=== PATIENT | male | born 1950 | race Caucasian/White ===

== ENCOUNTER 2023-12-02 11:33 | Emergency (ER) | payer MEDICARE, SELFPAY ==
[2023-12-02 11:33] VITALS: BP 154/93; PULSE 80; RESP 15; TEMP 36.3; O2SAT 100; BMI 19.5
[2023-12-02 11:41] VITALS: O2SAT 100
--- NOTE | 2023-12-02 11:48 | CT_ITS ---
STUDY: CT BRAIN WITHOUT CONTRAST REASON FOR EXAM: Male, 73 years old. Head injury, +LOC RADIATION DOSAGE (If Supplied By Facility): CTDIvol = ( 44.99 ) mGy, DLP = ( 796.11 ) mGycm TECHNIQUE: Transaxial CT imaging of the brain was performed without administration of intravenous contrast material. Individualized dose optimization techniques were used for this CT. COMPARISON: No relevant priors. FINDINGS: Normal soft tissue structures. Normal calvarium. There is mild cerebral atrophy with widening of the extra-axial spaces and ventricular dilatation. Normal white matter tracts of the cerebral hemispheres. There are small punctate calcifications of the basal ganglia which are seen in the aging brain as a normal variant. Normal brainstem. Normal cerebellum. There is no intracranial hemorrhage. There are no findings of an acute ischemic infarction. Atherosclerotic calcification of the cavernous portions of the internal carotid arteries bilaterally. Normal visualized paranasal sinuses. CT/Brain/Head without Contrast IMPRESSION: Chronic involutional changes of the brain. Electronically Signed: Abel Arreola MD at 12:33 EDT ,
--- NOTE | 2023-12-02 11:48 | CT_ITS ---
STUDY: CT CERVICAL SPINE WITHOUT CONTRAST REASON FOR EXAM: Male, 73 years old. Injury, pain RADIATION DOSAGE (If Supplied By Facility): CTDIvol = ( 14.24 ) mGy, DLP = ( 331.59 ) mGycm TECHNIQUE: High resolution transaxial imaging was performed without contrast material. Sagittal and coronal images were reconstructed. Individualized dose optimization techniques were used for this CT. COMPARISON: None FINDINGS: Normal craniovertebral junction. There are degenerative changes of the anterior atlantoaxial articulation. Normal odontoid process. There is straightening of the normal cervical lordosis. Normal vertebral bodies and posterior osseous elements. C2-3: Facet joint osteoarthritis and hypertrophy on the left side. Mild degree of left neural foraminal stenosis. C3-4: Facet joint osteoarthritis and hypertrophy. Worse on the left side. Uncovertebral arthrosis. Moderate degree of left neural foraminal stenosis. C4-5: Mild degree of disc space narrowing. Facet joint osteoarthritis and hypertrophy on the left side. Moderate degree of left neural foraminal stenosis. Posterior spondylosis on the left side with no significant stenosis. C5-6: Marked in degree of disc space narrowing and spondylosis. Uncovertebral arthrosis. Bilateral neural foraminal stenosis worse on the left side. C6-7: Normal endplates. Normal disc height and morphology. Normal central canal and intervertebral neuroforamina. C7-T1: Normal endplates. Normal disc height and morphology. Normal central canal and intervertebral neuroforamina. Normal visualized soft tissue structures. CT/Spine Cervical without Contras IMPRESSION: Multilevel degenerative changes, as described above. Electronically Signed: Aebl Arreola MD at 12:36 EDT ,
--- NOTE | 2023-12-02 11:50 | CT_ITS ---
STUDY: CT CHEST WITHOUT CONTRAST REASON FOR EXAM: Male, 73 years old. R rib pain, injury RADIATION DOSAGE (If Supplied By Facility): CTDIvol = ( 10.77 ) mGy, DLP = ( 392.97 ) mGycm TECHNIQUE: Transaxial imaging was performed without the administration of intravenous contrast material. Multiplanar coronal and sagittal images were reformatted. Individualized dose optimization techniques were used for this CT. COMPARISON: No relevant priors. FINDINGS: CHEST There is a 5.8 mm nodule in the posterior aspect of the left lung apex. Minimal increased markings at the lung bases suggestive scarring. There is no demonstrated pleural abnormality. There are calcifications of the coronary arteries. There are small lymph nodes within the mediastinum, which are normal in size and morphology most compatible with reactive lymph hyperplasia. Normal hilar regions. Normal unenhanced pulmonary arteries. There is atherosclerotic calcification of the aortic arch. There are multi-level degenerative changes of the thoracic spine. There is no demonstrated abnormality of the visualized upper abdomen. CT/Chest without Contrast IMPRESSION: 5.8 mm noncalcified nodule in the posterior aspect of the left lung apex. Correlation with a PET scan is recommended. Mild linear scarring at the lung bases. Electronically Signed: Abel Arreola MD at 12:32 EDT ,
--- NOTE | 2023-12-02 11:51 | RAD_ITS ---
STUDY: X-RAY - LEFT TIBIA AND FIBULA REASON FOR EXAM: Male, 73 years old. Laceration TECHNIQUE: 4 view(s) of the tibia and fibula were obtained. COMPARISON: None. FINDINGS: Normal visualized tibia. Normal visualized fibula. Soft tissue laceration overlying the medial aspect of the left tibia. No radiopaque foreign body is seen. RAD/Tibia & Fibula 2 Views IMPRESSION: Soft tissue laceration overlying the medial aspect of the left tibia. No radiopaque foreign body is seen. Electronically Signed: Abel Arreola MD at 12:36 EDT ,
--- NOTE | 2023-12-02 11:54 | EDS_ITS ---
HPI <MERLY Trimble - Last Filed: 12/02/23 14:21> History of Present Illness Chief Complaint: Trauma Narrative Narrative: Patient presenting today due to a injury that occurred this afternoon. He was standing on a ladder and the ladder fell causing him to fall 8 feet onto the ground, he did hit his head and there was a loss of consciousness for about 20 seconds according to his . He has a laceration to his chin and left carlson. He reports pain to his right lateral rib cage. He denies any pain to his neck, back, pelvis, or upper or lower extremities. He is able to ambulate without difficulty/pain. Tetanus is up-to-date. He is not on any blood thinners. PFS <MERLY Trimble Last Filed: 12/02/23 14:21> [facility] Medical History High cholesterol Cardiomyopathy Allergy/AdvReac Type Severity Reaction Status Date / Time aspirin Allergy Anaphylaxis Verified 12/02/23 11:34 Social History Smoking Status: Current every day smoker tobacco type: cigarettes ROS <MERLY Trimble Last Filed: 12/02/23 14:21> ROS ED Constitutional Constitutional ED: Denies chills or fever(s) Eyes Eyes: Denies blurry vision Cardiovascular Cardiovascular: Denies chest pain Respiratory/Chest Respiratory/Chest: Reports other Details: R rib pain ; Denies cough or dyspnea Gastrointestinal Gastrointestinal: Denies abdominal pain, nausea or vomiting Musculoskeletal Musculoskeletal: Denies arthralgias, back pain, myalgias or neck pain Integumentary Reports laceration Neurologic Neurologic: Denies paresthesias EXAM <MERLY Trimble - Last Filed: 12/02/23 14:21> Physical Exam Const Vital Signs: 12/02/23 11:33 12/02/23 11:41 12/02/23 13:06 Temperature 97.3 F L Temperature Source Temporal Pulse Rate 80 76 Respiratory Rate 15 22 H Respiratory Effort Normal Non-Labored Blood Pressure 154/93 H 140/84 H Blood Pressure Mean 113 102 Pulse Ox 100 100 99 Oxygen Delivery Method Room Air Room Air Room Air 12/02/23 13:55 12/02/23 14:00 Temperature 98 F Temperature Source Pulse Rate 66 Respiratory Rate 20 H Respiratory Effort Blood Pressure 133/79 H 143/87 H Blood Pressure Mean 97 105 Pulse Ox 99 Oxygen Delivery Method Positive well nourished, well developed and no apparent distress General Appearance ED: well developed HEENT Reports normocephalic and head/scalp atraumatic HEENT Narrative: 0.5 cm full-thickness laceration to the inside of the lower lip 3.5 centimeter full-thickness laceration to the chin. Mouth ED: Yes moist mucous membranes normal Eyes PERRL and EOMs intact bilaterally Neck full ROM and supple Chest Wall inspection of chest normal Resp normal respiratory effort and clear to auscultation bilaterally Cardio regular rate and regular rhythm GI soft to palpation, non-tender, non-distended and no masses Back/Spine normal ROM and normal to inspection Back/Spine Narrative: No midline thoracic, lumbar, or sacral tenderness Extremity full ROM Extremity Narrative: 8 cm full-thickness laceration to the left carlson. No active bleeding. Full range of motion to the bilateral hips, no tenderness to the bilateral hips. Neuro oriented x3, CN's II-XII intact bilaterally, moves all extremities, no focal motor deficits and no sensory deficits noted Sensorium / Orientation: awake and alert Psych mental status grossly normal and thought process normal <Dr. Anthony Orellana DO - Last Filed: 12/03/23 07:22> Physical Exam Const Vital Signs: 12/02/23 11:33 12/02/23 11:41 12/02/23 13:06 Temperature 97.3 F L Temperature Source Temporal Pulse Rate 80 76 Respiratory Rate 15 22 H Respiratory Effort Normal Non-Labored Blood Pressure 154/93 H 140/84 H Blood Pressure Mean 113 102 Pulse Ox 100 100 99 Oxygen Delivery Method Room Air Room Air Room Air 12/02/23 13:55 12/02/23 14:00 Temperature 98 F Temperature Source Pulse Rate 66 Respiratory Rate 20 H Respiratory Effort Blood Pressure 133/79 H 143/87 H Blood Pressure Mean 97 105 Pulse Ox 99 Oxygen Delivery Method PROC <MERLY Trimble - Last Filed: 12/02/23 14:21> Procedures Lacerations Laceration: Length: 3.15 in Depth: Fascia Shape: Linear Prep: Chlorhexadine Laceration repair: Irrigated, Lidocaine with epi, Skin sutures and Wound explored Number of Sutures/Cameron: 8 Suture Information: Ethilon, Horizontal, Mattress and 4-0 Comment: Irrigated with 1000 mL sterile saline Laceration chin: Length: 1.38 in Depth: Sub Q Shape: Linear Prep: Chlorhexadine Laceration repair: Irrigated, Lidocaine with epi, Skin sutures and Wound explored Irrigated (ml): 500 Number of Sutures/Twila: 7 Suture Information: Ethilon, Simple and 5-0 MDM <MERLY Trimble - Last Filed: 12/02/23 14:21> [facility] Narrative Medical decision making narrative: Patient presenting today due to a fall off a ladder that occurred this afternoon. He did hit his head, he has a laceration to his inner lower lip, chin, and left carlson. He has pain to his right lateral rib cage. CT of the head, neck, and chest obtained to rule out intracranial bleed, cervical fracture, and rib fracture. CT scans are negative for acute findings. There was a 5.8 mm nodule in the left lung, I did make patient aware of this finding and recommended that he follow-up with his PCP for further evaluation. X-ray of the tibia/fibula obtained due to the laceration and is negative for foreign body or fracture. Lacerations were copiously irrigated with normal saline and cleaned with chlorhexidine. They were repaired with sutures, patient tolerated procedure well. Wounds were then bandaged with bacitracin ointment. Patient given this incentive spirometer with instructions on use. I did offer analgesia, he declined. He reports that he will take Tylenol at home as needed. He does have a follow-up appointment with his PCP on . He will be discharged home in stable condition, wound care instructions were discussed. Radiography X-Ray: Read by ED Physician Diagnostic Testing: Clinical Impression(s) from Imaging Studies Brain CT 12/02/23 11:48 IMPRESSION: Chronic involutional changes of the brain. Electronically Signed: Abel Arreola MD at 12:33 EDT , Cervical Spine CT 12/02/23 11:48 IMPRESSION: Multilevel degenerative changes, as described above. Electronically Signed: Abel Arreola MD at 12:36 EDT , Chest CT 12/02/23 11:50 IMPRESSION: 5.8 mm noncalcified nodule in the posterior aspect of the left lung apex. Correlation with a PET scan is recommended. Mild linear scarring at the lung bases. Electronically Signed: Abel Arreola MD at 12:32 EDT , Tibia/Fibula X-Ray 12/02/23 11:51 IMPRESSION: Soft tissue laceration overlying the medial aspect of the left tibia. No radiopaque foreign body is seen. Electronically Signed: Abel Arreola MD at 12:36 EDT , <Dr. Anthony Orellana, DO - Last Filed: 12/03/23 07:22> [facility] Narrative Medical decision making narrative: Patient presenting today due to a fall off a ladder that occurred this afternoon. He did hit his head, he has a laceration to his inner lower lip, chin, and left carlson. He has pain to his right lateral rib cage. CT of the head, neck, and chest obtained to rule out intracranial bleed, cervical fracture, and rib fracture. CT scans are negative for acute findings. There was a 5.8 mm nodule in the left lung, I did make patient aware of this finding and recommended that he follow-up with his PCP for further evaluation. X-ray of the tibia/fibula obtained due to the laceration and is negative for foreign body or fracture. Lacerations were copiously irrigated with normal saline and cleaned with chlorhexidine. They were repaired with sutures, patient tolerated procedure well. Wounds were then bandaged with bacitracin ointment. Patient given this incentive spirometer with instructions on use. I did offer analgesia, he declined. He reports that he will take Tylenol at home as needed. He does have a follow-up appointment with his PCP on . He will be discharged home in stable condition, wound care instructions were discussed. ED attending note: I evaluated the patient in conjunction with the [facility]. I agree with his/her statements and above findings. I have personally performed a face to face assessment of the patient and have reviewed the [facility] Note. I performed a substantive portion of the visit including all aspects of the following. I personally saw the patient performed chart review, physical exam, reviewed labs, imaging (if obtained), and formulated a treatment and management plan. This note was generated with [employer] dictation software. It may contain incorrect words, spelling, and punctuation that were not noted in review of the chart prior to signing. Radiography Diagnostic Testing: Clinical Impression(s) from Imaging Studies Brain CT 12/02/23 11:48 IMPRESSION: Chronic involutional changes of the brain. Electronically Signed: Abel Arreola MD at 12:33 EDT , Cervical Spine CT 12/02/23 11:48 IMPRESSION: Multilevel degenerative changes, as described above. Electronically Signed: Abel Arreola MD at 12:36 EDT , Chest CT 12/02/23 11:50 IMPRESSION: 5.8 mm noncalcified nodule in the posterior aspect of the left lung apex. Correlation with a PET scan is recommended. Mild linear scarring at the lung bases. Electronically Signed: Abel Arreola MD at 12:32 EDT , Tibia/Fibula X-Ray 12/02/23 11:51 IMPRESSION: Soft tissue laceration overlying the medial aspect of the left tibia. No radiopaque foreign body is seen. Electronically Signed: Abel Arreola MD at 12:36 EDT , Discharge Plan Triage Chief Complaint: Trauma ED Midlevel Provider: Gracie Andrea ED Provider: Anthony Orellana Dx/Rx/DC Orders Clinical Impression: Fall, Head injury, Loss of consciousness, Laceration of face, Laceration of left leg, Contusion of rib on right side Instructions: ED Head Injury (Adult), ED Laceration, All Closures, ED Bruise, Rib Primary Care Provider: Christie Rosenbaum Referrals: Christie Rosenbaum, [Primary Care Provider] - 10 Day for suture removal Activity Restrictions/Additional Instructions: Have facial sutures removed in 5 days, have leg sutures removed in 10 days. Return for any signs of infection. Use the incentive spirometer 10 times per hour while awake until your pain subsides. Print Language: Indian Disposition Disposition: Home, Self Care Discharge Date/Time: 12/02/23 14:11
[2023-12-02 13:06] VITALS: BP 140/84; PULSE 76; RESP 22; O2SAT 99
[2023-12-02] MEDS: Lidocaine 1% /Epi 1:100 (20ml) 20 ML Vial 10 ML INFILT (13:16)
[2023-12-02 13:55] VITALS: BP 133/79; PULSE 66; RESP 20; TEMP 36.6; O2SAT 99
[2023-12-02 14:00] VITALS: BP 143/87
== END 2023-12-02 14:11 | disposition home or self-care (01) ==
PROVIDERS: Emergency Provider Emergency Medicine; PCP Internal Medicine; Visit Provider Emergency Medicine
DX: S01.81XA Laceration without foreign body of other part of head, initial encounter (principal); S06.9X9A Unspecified intracranial injury with loss of consciousness of unspecified duration, initial encounter; S20.211A Contusion of right front wall of thorax, initial encounter; S81.812A Laceration without foreign body, left lower leg, initial encounter; F17.210 Nicotine dependence, cigarettes, uncomplicated; W11.XXXA Fall on and from ladder, initial encounter; E78.00 Pure hypercholesterolemia, unspecified
CPT/HCPCS: 12013; 12004; 70450; 71250; 72125; 73590; 99283; J7030; A4216

== ENCOUNTER → 2023-12-17 | Outpatient (CLI) | payer MEDICARE, SELFPAY ==
--- NOTE | 2023-12-17 11:00 | PET_ITS ---
EXAMINATION: FDG PET/CT ? INDICATIONS: 73-year-old male with a history of pulmonary nodularity. ? COMPARISON EXAMINATION: CT of the chest report dated 12/02/2023. ? INDEX LESION SIZE SUV INTERPRETATION Midsternum to the right of midline ? 2.2 max Quantitative criteria for viable neoplasm are not fulfilled ? TECHNIQUE: Following the intravenous administration of 11.59 mCi of F-18 deoxyglucose via the right antecubital fossa, multiplanar image acquisitions of the head, neck, chest, abdomen and pelvis to the level of the midthigh, obtained at one-hour post radiopharmaceutical administration contemporaneously interpreted with the current CT of the chest, abdomen and pelvis dated 12/17/[address] of the chest report dated 12/02/2023 via coregistration reveal: ? SERUM GLUCOSE LEVEL:? 91 mg/dL? HEIGHT:?? 70 inches WEIGHT:?? 135 pounds ? FINDINGS: ? HEAD/NECK:? There is no evidence of abnormal increased glucose metabolism in the pharyngeal mucosal space, parapharyngeal space, oropharynx, bilateral-lateral and anterior neck, hypopharynx and distribution of the larynx. ? The visualized portion of the cerebral cortical-subcortical structures demonstrate symmetric and preserved glucose metabolism. ? CHEST:? There is no quantitative scintigraphic evidence of abnormal increased glucose metabolism within the context of the bilateral hemithorax pulmonary parenchyma, right and left hemithorax at the pleural interface, mediastinal structures, and left-right thoracic perihilum. ? CT of the chest demonstrates the following anatomic characteristics: A noncalcified density noted in the right upper lung field is nonglucose avid. Atherosclerotic calcification is defined in the thoracic aorta without evidence of dilatation, aneurysm formation. Coronary artery calcification is observed. Right and left axillary soft tissue densities are ametabolic. ? ABDOMEN/PELVIS:? Normal physiologic distribution of the radiopharmaceutical is identified in the hepatic and splenic parenchyma, both renal units, urinary bladder, and visualized intestinal tract. Diffuse intestinal tract is identified in all four quadrants of the abdominal-pelvic mesentery. ? CT of the abdomen and pelvis is remarkable for the following: Atherosclerotic calcification is defined in the abdominal aorta without evidence of dilatation, aneurysm formation. Pelvic arterial calcification is observed. Bilateral subcentimeter inguinal soft tissue densities are ametabolic. ? SKELETAL:? Enhanced uptake is noted in the bilateral anterior chest wall at the costochondral junction consistent with a focal inflammatory process (costochondritis). Facilitated uptake is noted in the midsternum to the right of midline with a calculated standard uptake value of 2.2. Quantitative criteria for viable neoplasm are not fulfilled. ? PET/PET/CT Tumor Base -Thigh Init IMPRESSION: 1. NEGATIVE EXAMINATION. There is no definitive quantitative scintigraphic evidence of viable neoplasm. 2. Metabolic, morphologic stability maybe ensured in the left hemithorax non-glucose avid parenchymal density with repeat CT of the thorax and/or FDG-PET CT study in 3-6 months, if clinically indicated. 3. Enhanced tracer uptake visualized in the midsternum to the right of midline does not fulfill quantitative criteria for viable osseous neoplasm. (Zee et al, Clinical Nuclear Medicine, 29:161, 2004). Electronic Signature Nitin Shirley D.O. Accurate Quantification of SUVs for this report are calculated using the exclusive [employer]. (U.S. Patent No. [id number] [id number] 983 B2 [phone] [place] patent [phone] [id number] [id number]). Standardization and correction of the FDG SUV metric via [employer] technology allow for vendor non-specific objective quantitative examination comparison and optimization of the sensitivity and specificity of the FDG PET-CT examination. . [email or web address] Electronically Signed: Nitin Shirley DO at 22:25 EDT ,
== END | disposition home or self-care (01) ==
PROVIDERS: PCP Internal Medicine; Referring Provider Internal Medicine; Visit Provider Internal Medicine
DX: R91.1 Solitary pulmonary nodule (principal)
CPT/HCPCS: 78815; A9552

== ENCOUNTER → 2025-01-06 | Outpatient (CLI) | payer MEDICARE, SELFPAY ==
--- NOTE | 2025-01-06 14:38 | CT_ITS ---
PROCEDURE: LOW DOSE CT LUNG SCREENING 01/06/2025 REASON FOR EXAM: SMOKER Patient has smoked for 40 years. TECHNIQUE: LOW DOSE CT LUNG SCREENING Coronal and Sagittal reconstruction series were provided. One or more dose reduction techniques were used (e.g., Automated exposure control, adjustment of the mA and/or kV according to patient size, use of iterative reconstruction technique). REFERENCE LINK: [employer] Lung-RADS RADIATION DOSE SUMMARY: CTDlvol: 3.02 mGy DLP: 119.28 mGycm COMPARISON: Prior study dated December 02, 2023. FINDINGS: PULMONARY NODULES: (Only nodules >3mm are reported) Nodules described below are on series 1 unless otherwise specified. Pulmonary Nodules: Stable 6 mm noncalcified nodule in the medial posterior aspect of the left lung apex. This is essential Hardware:None Lymph Nodes:No significant lymph nodes are seen. Heart and Vasculature:The heart is not enlarged. Coronary Artery Calcifications: Present Lungs and Airways: Mild emphysematous changes are present. Pleura:Unremarkable Upper Abdomen:Unremarkable Bones:Degenerative changes of the thoracic spine. CT/Low Dose CT Lung Screening IMPRESSION: Stable 6 mm noncalcified nodule in the posterior medial aspect of the left lung apex. Coronary artery calcification (CAC) is is present Lung-RADS Category: 2 BENIGN (BASED ON IMAGING FEATURES OR INDOLENT BEHAVIOR). RECOMMEND 12-MONTH SCREENING LDCT. Other Significant Findings: Reading Location: [place] [id number]
--- NOTE | 2025-01-06 14:38 | CT_ITS ---
PROCEDURE: LOW DOSE CT LUNG SCREENING 01/06/2025 REASON FOR EXAM: SMOKER Patient has smoked for 40 years. TECHNIQUE: LOW DOSE CT LUNG SCREENING Coronal and Sagittal reconstruction series were provided. One or more dose reduction techniques were used (e.g., Automated exposure control, adjustment of the mA and/or kV according to patient size, use of iterative reconstruction technique). REFERENCE LINK: [employer] website Lung-RADS RADIATION DOSE SUMMARY: CTDlvol: 3.02 mGy DLP: 119.28 mGycm COMPARISON: Prior study dated December 02, 2023. FINDINGS: PULMONARY NODULES: (Only nodules >3mm are reported) Nodules described below are on series 1 unless otherwise specified. Pulmonary Nodules: Stable 6 mm noncalcified nodule in the medial posterior aspect of the left lung apex. This is essential Hardware:None Lymph Nodes:No significant lymph nodes are seen. Heart and Vasculature:The heart is not enlarged. Coronary Artery Calcifications: Present Lungs and Airways: Mild emphysematous changes are present. Pleura:Unremarkable Upper Abdomen:Unremarkable Bones:Degenerative changes of the thoracic spine. CT/Low Dose CT Lung Screening IMPRESSION: Stable 6 mm noncalcified nodule in the posterior medial aspect of the left lung apex. Coronary artery calcification (CAC) is is present Lung-RADS Category: 2 BENIGN (BASED ON IMAGING FEATURES OR INDOLENT BEHAVIOR). RECOMMEND 12-MONTH SCREENING LDCT. Other Significant Findings: Reading Location: [place] [address]
== END | disposition home or self-care (01) ==
LOC: CVS 14:30
PROVIDERS: PCP Internal Medicine; Referring Provider Internal Medicine; Visit Provider Internal Medicine
DX: Z12.2 Encounter for screening for malignant neoplasm of respiratory organs (principal); F17.210 Nicotine dependence, cigarettes, uncomplicated
CPT/HCPCS: 71271